=== PATIENT | male | born 1960 | race Caucasian/White ===

== ENCOUNTER 2017-02-19 07:45 | Day surgery (SDC) | payer BC ==
[~2017-02-19] VITALS: Ht 167.6 cm; Wt 104.3 kg
[~2017-02-19 07:45] MED LIST: AMOXICILLIN875 MG PO; CARDIZEM CD180 MG PO; FLOMAX0.4 MG PO; KETOROLAC TROME10 MG PO; LEVOTHYROXINE100 MCG PO; LISINOPRIL10 MG PO; PERCOCET 5-3251 EACH PO; PREDNISONE5 M1 PO; ZOFRAN ODT4 MG SL
--- NOTE | 2017-02-19 08:52 | NUR ---
PT IS ALERT, ORIENTED AND SUPPORTED BY HIS KIDS. HE SEEMS AT EASE, REQUESTED PRAYER. SEEMED TO FEEL VERY COMFORTABLE WITH CORNELIUS JONES. WILL CONTINUE TO FOLLOW NEEDED
--- NOTE | 2017-02-19 12:34 | NUR ---
02/19/17 1234 Camilla Lee 1228-PATIENT ARRIVED TO PACU ON 8L MASK O2 SAT 100% PATIENT ARRIVED WITH EYES OPEN LAYING ON SIDE ORAL AIRWAY REMOVED BY MOCK UP BUILDER AT 1228. PATIENT DENIES PAIN OR NAUSEA. PACKING TO NOSE AND TIED.
[2017-02-19] MEDS ORDERED: NORCO 5-325 TA1 EACH PO ×2 (14:03→14:04)
[2017-02-19] MEDS ORDERED: KEFLEX500 MG PO (14:04)
--- NOTE | 2017-02-19 14:34 | NUR ---
1415: PATIENT ASSISTED OOB AND TO BATHROOM. GAIT STEADY. DENIED DIZZINESS. VOID WITHOUT DIFFICULTY. GAIT STEADY BACK TO BED. GOT DRESSED INDEPENDENTLY. GIVEN JELLO AND PUDDING. MEDICATED WITH 2 TABS OF NORCO FOR PAIN. SMALL AMOUNT OF BLOODY DRAINAGE COMING FROM NOSE. FAMILY AT BEDSIDE. CALL LIGHT WITHIN REACH.
--- NOTE | 2017-02-19 15:43 | NUR ---
1533: PATIENT STATES PAIN DOWN TO A /10. DISCHARGE INSTRUCTIONS GIVEN TO PATIENT. IV DC'D WNL. DRESSING APPLIED. PATIENT DISCHARGED TO HOME WITH GRANDDAUGHTER.
--- NOTE | 2017-05-07 09:33 | OR ---
[facility] [address] [place], [place] [address] Signed PREOPERATIVE DIAGNOSIS: Bilateral sinonasal polyposis. POSTOPERATIVE DIAGNOSIS: Bilateral sinonasal polyposis. PROCEDURES PERFORMED: Bilateral intranasal polypectomy and ethmoidectomy. ANESTHESIA: General LMA by BRIAN Mojica. PREOP HISTORY: Mr. Clark is a 56-year-old man with a long history of sinus problems. He had polypectomies [address] Hernandez. Symptoms have recurred over the last year to sinus infections, loss of nasal drainage, phlegm, congestion, and headaches. Exam in the office endoscopic and the CAT scan have shown sinonasal polyposis. He was taken to the operating room for the above-mentioned procedures after failure of medication to alleviate his condition. DESCRIPTION OF PROCEDURE: After informed consent, the patient was taken to the operating room, placed in supine position where general LMA anesthesia was induced. The patient and procedure were verified. The patient received preoperative intravenous Ancef and intranasal oxymetazoline. The preop CT was viewed throughout. The left side was approached first with the headlight and speculum. Polyps in the middle meatus and attached to the inferior surface of the middle turbinate were removed with Muriel. Anterior ethmoid air cells were opened and had polyps removed. Posterior ethmoid had also some polypoid mucosa. There was some purulence posteriorly coming from the sphenoid sinus which was completely opacified by CT. The sinus anterior wall was opened with the Muriel. The purulence was completely drained. There was a large middle meatal antrostomy previously made. The curette was used to remove polyps from the maxillary sinus. All the specimens were sent to Pathology. Bleeding was minimal, it was stopped afterwards the packing was placed. A Santos pack in the middle meatus and trimmed Merocel pack in the nasal cavity. The right side was then approached. Similar findings per CT and inspection. Sphenoid sinus was not involved in this side, but procedure was identical, otherwise packing was placed and tied anteriorly over a pad. The pharynx was suctioned and clear of blood and secretions. The patient was awakened, extubated, and transferred to the recovery room in good condition. No complications. Blood loss was minimal. Specimen to Pathology. No drains. Packing, two pieces of Merocel to each nostril. Yong Hardwick MD /Modl Electronically Signed By: YONG HARDWICK MD 05/07/17 0933 PATIENT NAME: GEM CLARK OPERATIVE REPORT DATE OF : 62 PHYSICIAN: YONG HARDWICK MD REPORT #: [id number] REPORT IS CONFIDENTIAL AND NOT TO BE RELEASED WITHOUT AUTHORIZATION [address] [address] Signed /[id number] Electronically Signed By: YONG HARDWICK MD 05/07/17 0933 PATIENT NAME: GEM CLARK Chente OPERATIVE REPORT DATE OF : 62 PHYSICIAN: YONG HARDWICK MD REPORT #: [id number] REPORT IS CONFIDENTIAL AND NOT TO BE RELEASED WITHOUT AUTHORIZATION
== END 2017-02-19 15:33 | disposition home or self-care (01) ==
LOC: DS 07:45
PROVIDERS: Otolaryngology
PROC: 09BU4ZZ Excision of Right Ethmoid Sinus, Percutaneous Endoscopic Approach (ICD-10-PCS; 2017-02-19)
PROC: 09BV4ZZ Excision of Left Ethmoid Sinus, Percutaneous Endoscopic Approach (ICD-10-PCS; principal; 2017-02-19 09:30)
DX: J01.20 Acute ethmoidal sinusitis, unspecified (principal); J33.8 Other polyp of sinus; I10 Essential (primary) hypertension; E03.9 Hypothyroidism, unspecified; G47.33 Obstructive sleep apnea (adult) (pediatric); J45.909 Unspecified asthma, uncomplicated; Z99.81 Dependence on supplemental oxygen; Z98.890 Other specified postprocedural states
CPT/HCPCS: 00160; J0690; J1100; J2405; J2704; J3010; J7120

== ENCOUNTER 2023-05-19 21:05 | Emergency (ER) | payer OTHER ==
[~2023-05-19] VITALS: Ht 167.6 cm; Wt 108.0 kg
[~2023-05-19 21:05] MED LIST changes: +KEFLEX500 MG PO; +NORCO 5-325 TA1 EACH PO
--- OUTSIDE RECORDS SUMMARY | 2023-05-19 21:08 | XMS ---
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 [employer] VISIT COUNT (12 MO.) [address] [place] [address] Tayler Carvalho (Grabiel Spain) TOTAL 2 NOTE: Visits indicate total known visits. ED/UCC VISIT TRACKING (12 MO.) 05/19/2023 21:07 [facility] TYPE: Emergency COMPLAINT: - [facility] DIAGNOSES: - Infectious gastroenteritis and colitis, unspecified - Abdominal Pain - Diarrhea (Adult) - Rectal Bleed - rectal bleeding INPATIENT VISIT TRACKING (12 MO.) No inpatient visits to display in this time frame [id number]
[2023-05-19 22:47] VITALS: BP 168/98
== END 2023-05-19 22:48 | disposition home or self-care (01) ==
LOC: ED 21:05
DX: S09.90XA Unspecified injury of head, initial encounter (principal); V89.2XXA Person injured in unspecified motor-vehicle accident, traffic, initial encounter; I10 Essential (primary) hypertension; Z87.891 Personal history of nicotine dependence; Z88.8 Allergy status to other drugs, medicaments and biological substances; Z79.899 Other long term (current) drug therapy
CPT/HCPCS: 70450; 99284-25